=== PATIENT | female | born 2000 ===

== ENCOUNTER → 2022-01-05 14:02 | Outpatient (BNVA) | payer MEDICAID, SELFPAY | PROVIDERS: Visit Provider Obstetrics & Gynecology | DX: Z36.9 Encounter for antenatal screening, unspecified (principal) | CPT/HCPCS: 76805 ==

== ENCOUNTER 2022-01-12 06:05 | Emergency (ER) | payer MEDICAID, SELFPAY ==
--- NOTE | 2022-01-12 06:13 | W.ED.ABDPA2 ---
HPI - Abdominal Pain General: Stated Complaint: abd pain Time Seen by Provider: 01/12/22 06:11 Source: patient Mode of arrival: ambulatory History of Present Illness: 21 yo female present to the ER with complaint of abd pain. MD elicited complaint: abdominal pain Discharge Plan Discharge Condition: Stable Coding Level of Care Code ED Wreath [employer] Gar[employer] Maker Hand for Woo Martinez
[2022-01-12 07:16] LABS: Basophils % 0.3 %; Eosinophils % 0.1 %; Hematocrit 34.4 % (37.0-47.0); Hemoglobin 11.1 g/dL (11.5-15.3); Lymphocytes # 2.1 10^3/uL (1.5-6.5); Lymphocytes % 22.4 %; Mean Corpuscular HGB Conc 32.3 g/dL (30.0-36.0); Mean Corpuscular Hemoglobin 25.6 pg (28.0-34.0); Mean Corpuscular Volume 79.3 fl (81-99); Mean Platelet Volume 13.1 fL (7.4-10.4); Monocytes # 0.5 10^3/uL (0.2-0.9); Monocytes % 5.4 %; Neutrophils # 6.61 10^3/uL (1.8-8.0); Neutrophils % 71.5 %; Nucleated Red Blood Cells % 0 %; Platelet Count 167 10^3/cmm (130-400); Red Blood Count 4.34 10^6/uL (4.1-5.3); Red Cell Distribution Width 14.1 % (12.1-15.1); White Blood Count 9.3 10^3/uL (4.5-13.0)
[2022-01-12 07:28] LABS: Alanine Aminotransferase 15 U/L (0-33); Albumin Level 3.8 g/dL (3.5-5.2); Alkaline Phosphatase 341 U/L (35-105); Anion Gap 16.5 (5-19); Aspartate Amino Transferase 16 U/L (0-32); Blood Urea Nitrogen 8 mg/dL (6-20); Calcium 9.2 mg/dL (8.5-10.5); Carbon Dioxide 19 mmol/L (22-29); Chloride 102 mmol/L (98-107); Globulin 3.2 g/dL (1.3-4.6); Glomerular Filtration Rate 158.9 mL/min (90-130); Glucose 84 mg/dL (65-115); Osmolality Calculated 276 mOsm/kg (285-295); Potassium 3.5 mmol/L (3.5-5.1); Sodium 134 mmol/L (136-145); Total Bilirubin 0.2 mg/dL (0.15-1.2)
== END 2022-01-12 06:15 | disposition home or self-care (01) ==
PROVIDERS: Emergency Provider Family Medicine
DX: O09.33 Supervision of pregnancy with insufficient antenatal care, third trimester (principal); Z3A.35 35 weeks gestation of pregnancy
CPT/HCPCS: 80053; 85025

== ENCOUNTER 2022-01-12 06:27 | Inpatient (IN) | payer MEDICAID, SELFPAY ==
[2022-01-12] VITALS (59 sets, daily range): BP systolic 89–159; BP diastolic 55–105; PULSE 54–107; RESP 16–17; TEMP 36.7–36.9; O2SAT 97–99; BMI 24.4
[2022-01-12] MEDS: ampicillin 2,000 MG in sodium chloride 0.9% (plus) 50 ML 100 MG IV (06:49)
[2022-01-12] MEDS: lactated ringers 1,000 ML 999 ML IV (06:49)
[2022-01-12] MEDS: butorphanol 2 mg/mL SDV 1 mL 1 MG IVP (07:05)
--- NOTE | 2022-01-12 07:12 | US_ITS ---
WS: [id number] LIMITED OBSTETRICAL ULTRASOUND HISTORY: NO CARE COMPARISON: 01/05/2022 Presentation: Vertex. Cervix: Poorly visualized. May be shortened. Placenta: Posterior and fundal. No previa or abruption is identified. Grade: 1 HEART: FHR of 136 BPM. measurements: BPD = 8.9 cm = 35w5d HC = 31.9 cm = 35w6d AC = 32.0 cm = 35w6d FL = 7.0 cm = 36w0d Amniotic fluid: TRISH was not performed but there are very few pockets of amniotic fluid identified. EFW: 2799 g; 66 %. AGA by ultrasound: 35w6d ABEL by ultrasound: 02/10/2022 As compared to the ultrasound on 01/12/2022 there is approximately 2 weeks discrepancy with the fetus measuring smaller today. US/US OB limited [id number] IMPRESSION: 1. Single intrauterine gestation of 35 weeks 6 days with an EDC of 02/10/2022. 2. No significant amount of amniotic fluid is identified. There are a few very small pockets. This may be due to patient's active labor. 3. Short cervix probably due to the active labor.
[2022-01-12 07:44] LABS: Hepatitis B Surface Antigen Non-Reactive (Nonreactive)
[2022-01-12 07:48] LABS: Rapid Plasma Reagin Syphilis Nonreactive (Nonreactive)
[2022-01-12 07:53] LABS: HIV 1 & 2 Antibody Non-Reactive (Non-Reactiv); HIV 1 & 2 Antigen Non-Reactive (Non-Reactiv)
--- NOTE | 2022-01-12 08:08 | ANES.PREANE2 ---
Pre-Anesthetic Assessment Height/Weight: Pulse BP Pulse Ox 76 136/95 99 01/12/22 07:51 01/12/22 07:51 01/12/22 07:41 Preop Diagnosis: labor pain epidrual Familial anesthetic complications: none Was Beta Eric taken within 24 hours: N/A Was Clonidine taken within 24 hours: N/A Social No alcohol and No tobacco Exam alert, oriented x 3, clear to auscultation bilaterally and regular rate & rhythm Airway Submandibular: within normal limits Cervical ROM: within normal limits Mallampati: Class II Dentition: full History/ROS Other Pulmonary None reported CV/HEM None reported None reported Hepatic None reported GI None reported Metabolic None reported Musc/skel None reported Neuropsych None reported Anesthetic Plan ASA status: 2 Anesthesia: Regional (specify below) Risk of > 500 ml blood loss (7ml/kg in children): No Medications/Allergies Allergies Allergy/AdvReac Type Severity Reaction Status Date / Time No Known Allergies Allergy Verified 01/12/22 07:23 Current Medications Generic Name Dose Route Start Last Admin Trade Name Freq PRN Reason Stop Dose Admin Lactated Ringer's 1,000 mls @ 999 mls/hr 01/12/22 06:45 01/12/22 06:49 Lactated Ringers IV 999 mls/hr .Q1H1M PRN Administration See label comments PFSH Anesthesia Female Reproductive History : 1 Data Anesthesia Cardiac Studies: No Data to Display
--- NOTE | 2022-01-12 08:09 | PM.HP ---
Providers/Chief Complaint Chief Complaint: Contractions History of Present Illness Twila Sim is a 21 year old at 35.6 weeks gestation by ultrasound today. is complicated by no care, teen , GBS unknown. The patient woke up with contractions at 3 AM on the morning of 01/12/2022. They began to get stronger and by approximately 6 AM she presented to labor and delivery triage. She was found to be 5 to 6 cm at that time and having contractions every 2 to 3 minutes. The patient was in significant pain with contractions. The patient currently denies any leakage of fluid, vaginal bleeding, chest pain, shortness of breath, fever, dysuria. Medications/Allergies Allergies Allergy/AdvReac Type Severity Reaction Status Date / Time No Known Allergies Allergy Verified 01/12/22 07:23 PFSH Acute PFSH: Surgical History (Updated 01/12/22 @ 08:14 by Juan Manuel Fernando MD) No pertinent past surgical history Social History (Updated 01/12/22 @ 08:14 by Juan Manuel Fernando MD) Smoking and tobacco status: never smoked Alcohol intake: never Substance/Drug Use: never Agree to transfusion: Yes Female Reproductive History: : 1 Vitals/I&O/Wt Last Vital Signs Pulse 76 01/12/22 07:51 BP 136/95 01/12/22 07:51 Pulse Ox 99 01/12/22 07:41 Physical Exam Narrative: General: Alert and oriented x3 Eyes: Pupils equal round and reactive to light and accommodation Mouth: Mucous membranes moist, pharynx non-erythematous Cardiac: Regular rate and rhythm without murmurs Lungs: Clear to auscultation bilaterally without wheezes, crackles or rhonchi Abdomen: Soft, non-tender, fundus consistent with gestational age Extremities: Trace edema in the bilateral lower extremities A&P Assessment and plan (1) Teen : (2) Intrauterine : The patient is doing well at this time. She has been having quite a bit of pain with contractions. She was given 1 dose of Stadol that has helped. There is no bleeding. Placenta looks good on ultrasound. We have an estimated weight of 6 pounds on ultrasound today. Fluid is intact. heart tones have been in the mid 130s with moderate variability and good accelerations. Contractions have been every 2 to 4 minutes. heart tones are in a category 1 tracing. She will receive a laboring epidural shortly. We have started the patient on ampicillin for GBS prophylaxis. GBS swab was obtained. Routine labs were drawn. The patient is Slovenian-speaking only. She was not able to use the paper bag machine operator on the phone as she would not hold the phone. Her significant other is with her and I spoke with both of them in Slovenian regarding the plan of care. All questions were answered. Attestations Medical Necessity Statement*: The patient will be here for greater than 2 midnights due to routine intrapartum and management of labor and delivery. Coding Level of Care Code Acute Client Service Executive for Chg Fwd Diagnoses Teen Intrauterine Z34.90
--- NOTE | 2022-01-12 08:45 | ANES.PROC ---
Anesthesia Procedures Procedure/Date: 01/12/22 epidural Procedure Narrative: epidural complete, bolus given, epidural pump initiated with ASSET PROTECTION REPRESENTATIVE education given, vitals taken during procedure and satisfactory throughout, patient admits to decrease pain, report of procedure to OB RN Epidural: Time Out Performed: Yes Consents Signed: Procedure Consent Consent: requested by attending/covering physician, from patient, risks and benefits reviewed and patient agrees to proceed Lumbar Level: L3-L4 Epidural position: sitting Epidural procedure: sterile prep of area, 1% lidocaine to numb the area (3 mL), 18 g needle, negative for paresthesia passed, neg for paresthesia, test dose given, 1.5% xylocaine 1:200k epi (5 mL), 0.2% Ropivacaine bolus ml (5 mL), placed PCEA, no systemic response, sterile dressing applied, L.U.D. no apparent complications and 0.2% Ropiavacaine @ mls/hr (13 mL/hr)
[2022-01-12] MEDS: ampicillin 1,000 MG in sodium chloride 0.9% (plus) 50 ML 100 MG IV ×2 (10:12→15:17)
[2022-01-12 16:35] LABS: Amphetamines Screen Urine Negative (Negative); Barbiturates Screen Urine Negative (Negative); Benzodiazepines Screen Urine Negative (Negative); Cocaine Screen Urine Negative (Negative); Opiate Screen Urine Negative (Negative); PCP Screen Urine Negative (Negative); THC Screen Urine Negative (Negative)
--- NOTE | 2022-01-12 17:13 | P.PCNOB_ITS ---
Delivery Note: Date of delivery: January 12, 2022 Pre-delivery diagnoses: 1. Intrauterine at 35.6 weeks gestation by 35-week ultrasound 2. Teen 3. No care 4. GBS unknown Post-delivery diagnoses: 1. Intrauterine status post spontaneous vaginal delivery at 35.6 weeks gestation 2. Teen 3. No care 4. GBS unknown 5. Delivery of healthy infant female weighing 5 pounds 11 ounces with Apgars of 9 and 9 Procedure: Spontaneous vaginal delivery Delivering Physician: Juan Manuel Fernando MD Estimated blood loss (mL): 100 Findings: 1. Healthy appearing infant female weighing 5 pounds 11 ounces with Apgars of 9 and 9 2. Intact placenta with central umbilical cord insertion site Pre-Delivery Course: Twila Sim is a 21 year old G1 now P1 status post spontaneous vaginal delivery at 35.6 weeks gestation by 35-week ultrasound.? is complicated by no care, teen , GBS unknown. The patient has apparently tried to establish care approximately 5 weeks ago, however was unable to at that time. The patient woke up with contractions at 3 AM on the morning of 01/12/2022.? They began to get stronger and by approximately 6 AM she presented to labor and delivery triage.? She was found to be 5 to 6 cm at that time and having contractions every 2 to 3 minutes.? The patient was in significant pain with contractions. The patient made change after 1 hour and was kept for spontaneous labor. Due to the patient having no care, the GBS swab was obtained and labs were drawn. The patient was started on ampicillin for GBS prophylaxis. She was given 1 dose of Stadol for pain control and a bolus was started. The patient received a laboring epidural. This helped with her pain significantly. The patient then gradually made change on her own and was 9 cm dilated with a bulging bag. AROM was performed at 1355 on 01/12/2022. Clear fluid was noted. The patient continued to progress on her own and was complete by 1558 on 01/12/2022. Delivery: The patient began pushing at 1607 on 01/12/2022. The patient pushed well and the descended. The infant delivered in the OA position at 1649 on 01/12/2022. There was no nuchal cord. Right shoulder was the anterior shoulder and it delivered with ease. Rest of the delivered with ease. The infant was crying immediately upon delivery. Terminal meconium was noted. The infant's mouth and nose were bulb suctioned by myself. The was placed on the mother's chest where the nurses were waiting to care for her. The 's cord was clamped by myself after approximately 1 minute and of the infant's father cut the cord. Cord blood was obtained. The cord was then drained of blood and traction was placed on umbilical cord. Uterine massage was carried out and the placenta delivered at 1654 on 01/12/2022. The placenta was noted to be intact. A central umbilical cord insertion site was noted. The cervix was inspected and no lacerations were noted. The vaginal wall was inspected and a small abrasion was noted on the left hymenal ring. There was no significant bleeding and no sutures were needed. The uterus was noted to be firm, however high so an in-and-out catheter was placed and the uterus descended well after this. Currently both the mother and infant are doing well. History History History 1 Term 0 1 Miscarriages/Ectopic 0 Living Children 1 Past Pregnancies Del. Date GA/Weeks Outcome Route Wt Inf Gender Labor Lgth Comp. Anesth esia Location 01/12/22 35 live - Vaginal 5 lb 11 oz Female 13 regional [facility] Delivery Date: 01/12/22 Last Updated by: Juan Manuel Fernando MD No care, spontaneous labor A&P Assessment and plan (1) Spontaneous vaginal delivery: Coding Level of Care Code Acute Cloth Printing Utility Worker for Chg Fwd Diagnoses Spontaneous vaginal delivery O80
[2022-01-12] MEDS: acetaminophen 325 mg Tablet 650 MG PO (23:08)
[2022-01-13 00:50] VITALS: BP 113/72; PULSE 63; RESP 16; O2SAT 98
[2022-01-13 02:50] VITALS: BP 108/64; PULSE 69; RESP 16; TEMP 36.8; O2SAT 99
[2022-01-13] MEDS: acetaminophen 325 mg Tablet 650 MG PO (05:30)
[2022-01-13 05:33] LABS: Hematocrit 32.9 % (37.0-47.0); Hemoglobin 10.5 g/dL (11.5-15.3); Mean Corpuscular HGB Conc 31.9 g/dL (30.0-36.0); Mean Corpuscular Hemoglobin 25.7 pg (28.0-34.0); Mean Corpuscular Volume 80.6 fl (81-99); Platelet Count 155 10^3/cmm (130-400); Red Blood Count 4.08 10^6/uL (4.1-5.3); Red Cell Distribution Width 14.4 % (12.1-15.1); White Blood Count 12.9 10^3/uL (4.5-13.0)
--- NOTE | 2022-01-13 08:32 | ANE.PACU2 ---
Inpatient post-anesthesia follow up: Airway intact: Yes Vital signs: Temperature 98.2 F Pulse Rate 69 Respiratory Rate 16 Blood Pressure 108/64 Pulse Oximetry 99 Oxygen Delivery Me thod Room Air Oxygen Flow Rate Fraction of Inspir ed Oxygen Hydration adequate: Yes Nausea and vomiting: No Pain level: 2 Mental status: Baseline
[2022-01-13] MEDS: ibuprofen 800 mg tablet PO ×3 (11:10→22:05)
[2022-01-13] MEDS: docusate sodium 100 mg Capsule PO ×2 (11:10→18:30)
[2022-01-13] MEDS: prenatal vitamin Capsule 1 CAP PO (11:11)
[2022-01-13 12:51] VITALS: BP 116/78; PULSE 74; RESP 16; TEMP 36.8; O2SAT 99
--- NOTE | 2022-01-13 15:47 | PM.PN ---
Subjective Subjective: The patient is doing well today. She is ambulating, voiding, passing gas and tolerating food by mouth. Her bleeding is decreasing well. Her pain is well controlled. Vitals/I&O/Wt Last Vital Signs Temp 98.2 F 01/13/22 12:51 Pulse 74 01/13/22 12:51 Resp 16 01/13/22 12:51 BP 116/78 01/13/22 12:51 Pulse Ox 99 01/13/22 12:51 O2 Del Method 01/13/22 12:51 Weight last 48 hrs Weight 125 lb Physical Exam Narrative: General: Alert and oriented x3 Cardiac: Regular rate and rhythm without murmurs Lungs: Clear to auscultation bilaterally without wheezes, crackles or rhonchi Abdomen: Soft, mild tenderness over uterus. The uterus is firm and 2 cm below the umbilicus. Extremities: Trace edema in the bilateral lower extremities Urinary Catheter Management: Gibbs: Cath Placed During This Visit: yes, but has since been removed by the nurse Reason for Continuing Indwelling Catheter: Decision to DC Catheter Urinary Catheter Date of Insertion: 01/12/22 Urinary Catheter Time of Insertion: 09:00 Date Urinary Catheter Removed: 01/12/22 Time Urinary Catheter Discontinued: 16:09 Data : 01/13/22 05:24 A&P Assessment and plan (1) Spontaneous vaginal delivery: Plan The patient is doing well at this time. We will continue with routine care. We will plan for discharge home tomorrow if everything continues to go well. All questions were answered. Attestations Medical Necessity Statement*: The patient will be here for greater than 2 midnights due to routine intrapartum and management of labor and delivery. Coding Level of Care Code Acute Informatics Educator for Woo Martinez Diagnoses Spontaneous vaginal delivery O80
[2022-01-13 18:52] VITALS: BP 122/82; PULSE 74; RESP 16; TEMP 37; O2SAT 99
[2022-01-13 22:10] VITALS: BP 116/80; PULSE 56; RESP 16; TEMP 36.3
[2022-01-14 04:00] VITALS: BP 113/75; PULSE 57; RESP 14; TEMP 36.8; O2SAT 98
[2022-01-14] MEDS: HYDROcodone-acetaminophen 5-325 mg Tablet PO (04:21)
[2022-01-14] MEDS: prenatal vitamin Capsule 1 CAP PO (09:21)
[2022-01-14] MEDS: ibuprofen 800 mg tablet PO (09:22)
[2022-01-14] MEDS: docusate sodium 100 mg Capsule PO (09:22)
[2022-01-14 09:26] VITALS: BP 133/84; PULSE 65; RESP 16; TEMP 36.7; O2SAT 98
--- NOTE | 2022-01-14 10:36 | P.DS_ITS ---
Discharge Providers Date of Admission: 01/12/22 06:27 Date of Discharge: January 14, 2022 Attending Provider at Admission: Juan Manuel Fernando MD Attending Provider at Discharge: Juan Manuel Fernando MD Diagnoses at Discharge Discharge Diagnosis (1) Spontaneous vaginal delivery: Status: Acute Other Information Additional DC diagnoses/information: 1.? Intrauterine status post spontaneous vaginal delivery at 35.6 weeks gestation 2.? Teen 3.? No care 4.? GBS unknown 5.? Delivery of healthy female weighing 5 pounds 11 ounces with Apgars of 9 and 9? Reason for Visit Reason for Visit: Contractions Brief History: Twila Sim is a 21 year old G1 now P1 status post spontaneous vaginal delivery at 35.6 weeks gestation by 35-week ultrasound.? is complicated by no care, teen , GBS unknown. The patient has apparently tried to establish care approximately 5 weeks ago, however was unable to at that time.? The patient woke up with contractions at 3 AM on the morning of 01/12/2022.? They began to get stronger and by approximately 6 AM she presented to labor and delivery triage.? She was found to be 5 to 6 cm at that time and having contractions every 2 to 3 minutes.? The patient was in significant pain with contractions.? The patient made change after 1 hour and was kept for spontaneous labor.? Due to the patient having no care, the GBS swab was obtained and labs were drawn.? The patient was started on ampicillin for GBS prophylaxis.? She was given 1 dose of Stadol for pain control and a bolus was started.? The patient received a laboring epidural.? This helped with her pain significantly.? The patient then gradually made change on her own and was 9 cm dilated with a bulging bag.? AROM was performed at 1355 on 01/12/2022.? Clear fluid was noted.? The patient continued to progress on her own and was complete by 1558 on 01/12/2022. Hospital Course Hospital Course The patient began pushing at 1607 on 01/12/2022.? The patient pushed well and the descended.? The infant delivered in the OA position at 1649 on 01/12/2022.? There was no nuchal cord.? Right shoulder was the anterior shoulder and it delivered with ease.? Rest of the delivered with ease.? The was crying immediately upon delivery.? Terminal meconium was noted.? The 's mouth and nose were bulb suctioned by myself.? The infant was placed on the mother's chest where the nurses were waiting to care for her.? The infant's cord was clamped by myself after approximately 1 minute and of the infant's father cut the cord.? Cord blood was obtained.? The cord was then drained of blood and traction was placed on umbilical cord.? Uterine massage was carried out and the placenta delivered at 1654 on 01/12/2022.? The placenta was noted to be intact.? A central umbilical cord insertion site was noted.? The cervix was inspected and no lacerations were noted.? The vaginal wall was inspected and a small abrasion was noted on the left hymenal ring.? There was no significant bleeding and no sutures were needed.? The uterus was noted to be firm, however high so an in-and-out catheter was placed and the uterus descended well after this.? the patient has done well without complications. Her bleeding is decreasing well. She is ambulating, voiding, passing gas and tolerating food by mouth. All questions were answered. Routine discharge instructions were discussed in detail. She will plan to see me at 6 weeks . Physical Exam Narrative: General: Alert and oriented x3 Cardiac: Regular rate and rhythm without murmurs Lungs: Clear to auscultation bilaterally without wheezes, crackles or rhonchi Abdomen: Soft, mild tenderness over uterus. The uterus is firm and 2 cm below the umbilicus. Extremities: Trace edema in the bilateral lower extremities Urinary Catheter Management: Gibbs: Cath Placed During This Visit: yes, but has since been removed by the nurse Reason for Continuing Indwelling Catheter: Decision to DC Catheter Urinary Catheter Date of Insertion: 01/12/22 Urinary Catheter Time of Insertion: 09:00 Date Urinary Catheter Removed: 01/12/22 Time Urinary Catheter Discontinued: 16:09 Discharge Data Studies Completed and Pending Completed Studies During Hospitalization Category Date Time Status US OB limited 47839 Stat Ultrasound 01/12/22 07:12 Completed Pending at discharge Category Date Time Status Chlamydia Trachomatis EMIGDIO Routine Lab 01/12/22 08:10 Results Neisseria Gonorrhoeae EMIGDIO Routine Lab 01/12/22 08:10 Results Radiology Impressions Obstetrics Ultrasound 01/12/22 07:12 IMPRESSION: 1. Single intrauterine gestation of 35 weeks 6 days with an EDC of 02/10/2022. 2. No significant amount of amniotic fluid is identified. There are a few very small pockets. This may be due to patient's active labor. 3. Short cervix probably due to the active labor. Laboratory Results WBC 12.9 10^3/uL (4.5-13.0) 01/13/22 05:24 RBC 4.08 10^6/uL (4.1-5.3) L 01/13/22 05:24 Hgb 10.5 g/dL (11.5-15.3) L 01/13/22 05:24 Hct 32.9 % (37.0-47.0) L 01/13/22 05:24 MCV 80.6 fl (81-99) L 01/13/22 05:24 MCH 25.7 pg (28.0-34.0) L 01/13/22 05:24 MCHC 31.9 g/dL (30.0-36.0) 01/13/22 05:24 RDW 14.4 % (12.1-15.1) 01/13/22 05:24 Plt Count 155 10^3/cmm (130-400) 01/13/22 05:24 MPV 13.0 fL (7.4-10.4) H 01/13/22 05:24 Urine Opiates Screen Negative ng/mL (Negative) 01/12/22 08:10 Ur Barbiturates Screen Negative ng/mL (Negative) 01/12/22 08:10 Ur Phencyclidine Scrn Negative ng/mL (Negative) 01/12/22 08:10 Ur Amphetamines Screen Negative ng/mL (Negative) 01/12/22 08:10 U Benzodiazepines Scrn Negative ng/mL (Negative) 01/12/22 08:10 Urine Cocaine Screen Negative ng/mL (Negative) 01/12/22 08:10 U Marijuana (THC) Screen Negative ng/mL (Negative) 01/12/22 08:10 RPR Nonreactive (Nonreactive) 01/12/22 06:38 Hep Bs Antigen Non-reactive (Nonreactive) 01/12/22 06:38 HIV 1&2 Ab & HIV 1 Ag Non-reactive (Non-Reactiv) 01/12/22 06:38 HIV 1&2 Antibody Non-reactive (Non-Reactiv) 01/12/22 06:38 Rubella IgG Antibody 21.0 IU/mL (0.0-10.0) H 01/12/22 06:38 Blood Type O Positive 01/12/22 06:38 Rho(D) Type Positive 01/12/22 06:38 Antibody Screen Negative 01/12/22 06:38 Vitals Last Vital Signs Temp 98.1 F 01/14/22 09:26 Pulse 65 01/14/22 09:26 Resp 16 01/14/22 09:26 BP 133/84 01/14/22 09:26 Pulse Ox 98 01/14/22 09:26 O2 Del Method 01/14/22 09:26 Discharge Plan Discharge Patient Disposition: Home Condition: Stable Prescriptions: New -U 106.5-1 mg Capsule 1 cap PO DAILY Qty: 60 0RF ferrous sulfate 325 mg (65 mg iron) tablet 325 mg PO DAILY Qty: 30 0RF ibuprofen 800 mg Tablet 800 mg PO TID Qty: 40 0RF Discharge Orders: Discharge Order (Routine); Ordered 01/14/22 Ordered By: Juan Manuel Fernando Referrals: Juan Manuel Fernando MD [Physician] - 6 Weeks Discharge Diet: Regular Discharge Activity: Increase activity as tolerated Patient Instructions: Depression (DC), Bleeding (DC), Preeclampsia and Eclampsia After Delivery (GEN), Hemorrhage (DC), OB Discharge Report, OB Food/Drug Interaction Guide, OB Care at Home, Opioid Safety, OB Your Care - [facility], OB Vaginal Deliveries Activity Restrictions/Additional Instructions: Rhodes por la vagina venkatesh las proximas 6 semanas. Se puede ducharse kinjal prefiero que no banarse venkatesh las proximas 4-6 semanas hasta que no ashley sangrando para bajar el riesgo de infeccion en el utero. Discharge Attestations Time Spent in Discharge Care*: greater than 30 min Quality Metrics Clinical Quality Measures [ No reported AMI, CVA or VTE this stay] Coding Level of Care Code Acute Chg FW DC note Diagnoses Spontaneous vaginal delivery O80
--- NOTE | 2022-01-14 11:47 | PC.NURSE ---
discharge instructions printed in hungarian and given to pt to read. using foamite mixer pt and encouraged to read instructions and let me know if they have any questions. follow up appointment for 01/16/22 at 0[address] understood as discussed by Dr Fernando. per foamite mixer, medications and how to get them from [facility] pharmacy. reportable/seek emergency care signs and symptoms discussed. understanding voiced by pt and .
[2022-01-14 15:15] VITALS: BP 124/81; PULSE 70; RESP 15; TEMP 36.6; O2SAT 99
[2022-01-14 15:30] VITALS: BP 124/81; PULSE 70; RESP 15; TEMP 36.6; O2SAT 99
== END 2022-01-14 15:30 | disposition home or self-care (01) | DRG 807 ==
LOC: OPOB 06:28 → OBGYN 06:29 → OPOB 01-13 11:40 → OBGYN 01-14 10:38
PROVIDERS: Admitting Provider Family Medicine; Visit Provider Family Medicine
DX: O77.0 Labor and delivery complicated by meconium in amniotic fluid (principal); Z37.0 Single live birth; Z3A.35 35 weeks gestation of pregnancy
CPT/HCPCS: 36415; 51702; 59025; 59409; 76815; 80306; 85027; 86592; 86762; 86850; 86900; 87340; 87491; 87591; 87806; 99211; J0290; J0595; J2795; J7120